=== PATIENT | female | born 1955 | race Hispanic/Latino ===

== ENCOUNTER 2016-11-25 00:27 | Observation (INO) | payer OTHER ==
[~2016-11-25] VITALS: Ht 165.1 cm; Wt 54.4 kg
[~2016-11-25 00:27] MED LIST: TAMOXIFEN CITRA20 MG PO
--- NOTE | 2016-11-25 01:08 | ED GI/GU/ABDOMINAL COMPLAINT ---
See Addendum History of Present Illness General Chief Complaint: Abdominal Pain/Flank Pain Stated Complaint: "PER PT ABD PAIN, BLOATING" Source: patient, Exam Limitations: no limitations Vital Signs & Intake/Output Vital Signs & Intake/Output Vital Signs Date Time Temp Pulse Resp B/P B/P Pulse O2 O2 Flow FiO2 Mean Ox Delivery Rate 11/25 0338 97.8 74 17 144/79 98 Room Air 11/25 0048 Room Air 11/25 0035 97.5 90 16 159/83 97 Room Air Allergies Coded Allergies: NO KNOWN ALLERGIES (01/25/14) NKA PER ANTIBIOTIC ORDER SHEET OF 01/30/13 ([facility]) Reconcile Medications No Known Home Medications Triage Note: 61YO FEMALE TO TRIAGE W/CO ABD BLOATING SINCE SUNDAY. DENIES ANY N,V,D. STATES BLOATING AFTER EATING ANYTHING. ALSO STATES HER BM'S HAVE BEEN DIFFICULT. Triage Nurses Notes Reviewed? yes ? n Is pt currently ? No HPI: patient presents for evaluation of diffuse abdominal pain and bloating feeling and has been present for over 2 weeks. Patient states the episodes have been intermittent but have gotten worse. She states she usually has the symptoms about 3-4 hours after eating. No associated fever or cold symptoms. A number of years ago for primary care doctor told her that she has small gallstones. Nothing seems to make her feel better regarding these episodes. Past History Travel History Traveled to [place] past 21 day No Medical History Any Pertinent Medical History? see below for history Surgical History Surgical History: non-contributory Psychosocial History What is your primary language Mandarin Tobacco Use: Never used Family History Hx Contributory? No Review of Systems Review of Systems Constitutional: Reports: no symptoms. EENTM: Reports: no symptoms. Respiratory: Reports: no symptoms. Cardiovascular: Reports: no symptoms. GI: Reports: see HPI. Genitourinary: Reports: no symptoms. Musculoskeletal: Reports: no symptoms. Skin: Reports: no symptoms. Neurological/Psychological: Reports: no symptoms. Hematologic/Endocrine: Reports: no symptoms. Immunologic/Allergic: Reports: no symptoms. All Other Systems: Reviewed and Negative Physical Exam Physical Exam Gastrointestinal: see below Comments: Gen.: Well-nourished, well-developed, no acute respiratory distress. Head: Normocephalic, atraumatic. Eyes: Normal inspection bilaterally, no icterus Ears: Normal inspection bilaterally Nose: Normal inspection Throat/mouth : Moist mucosa Neck: Supple, full range of motion, no goiter Heart: Regular rate and rhythm, no murmurs rubs or gallops Lungs: Clear to auscultation bilaterally with normal air entry Chest: Nontender Back: Normal range of motion Abdomen: Soft, mild right upper quadrant abdominal tenderness without rebound or guarding, nondistended, normal bowel sounds Extremities: Normal range of motion grossly, equal radial pulses, no cyanosis clubbing or edema Neurologic: Cranial nerves grossly intact, speech is clear Skin: warm and dry Psychiatric: Calm, cooperative, no apparent delusions or hallucinations Core Measures ACS in differential dx? No Severe Sepsis Present: No Septic Shock Present: No Progress Differential Diagnosis: biliary colic, cholecystitis Plan of Care: Orders Procedure Date/time Status Nothing by Mouth 11/25 B Active EKG 11/25 043 Active Vital Signs 11/25 042 Active Intake & Output 11/[address] in observation 11/25 041 Active Patient Data 11/25 417 Active URINALYSIS 11/25 010 Complete LIPASE 11/25 010 Complete COMPREHENSIVE METABOLIC PANEL 11/25 010 Complete CBC WITHOUT DIFFERENTIAL 11/25 010 Complete Current Medications Sig/Julito Start time Last Medication Dose Stop Time Status Admin Heparin Sodium 5,000 UNIT Q8 11/25 1400 UNVr (Porcine) Ampicillin Sodium/ 3,000 MG Q6H 11/25 0900 UNVr Sulbactam Sodium (Unasyn) Sodium Chloride 100 ML (Normal Saline 0.9%) Acetaminophen 1,000 MG Q6P PRN 11/25 0800 UNVr (Ofirmev) N/A 1 UNIT (No Carrier) Morphine Sulfate 2 MG Q3P PRN 11/25 0430 UNVr (Morphine) Ondansetron HCl 4 MG Q6P PRN 11/25 0430 UNVr (Zofran) Potassium Chloride 20 MEQ Q10H 11/25 0430 UNVr 11/25 (KCl 20MEQ in D5W 439 2NS 1000ML) Dextrose/Sodium 1,000 ML Chloride (D5W-1/2 Normal Saline 1000ML) Laboratory Tests 11/25/16 0215: Urinalysis LIGHT H, Urine Color YEL, Urine Clarity HAZY H, Urine pH 6.0, Ur Specific [place] 1.020, Urine Protein NEG, Urine Ketones NEG, Urine Nitrite NEG, Urine Bilirubin NEG, Urine Urobilinogen 0.2, Ur Leukocyte Esterase NEG, Ur Microscopic SEDIMENT EXAMINED, Urine RBC 3-5, Urine WBC 5-10 H, Ur Epithelial Cells FEW, Urine Bacteria RARE H, Urine Mucus FEW, Urine Hemoglobin TRACE- INTACT, Urine Glucose NEG 11/25/16 0110: Anion Gap 10, Estimated GFR > 60, BUN/Creatinine Ratio 30.0 H, Glucose 109 H, Calcium 8.9, Total Bilirubin 0.3, AST 17, ALT 30, Alkaline Phosphatase 99, Total Protein 6.4, Albumin 3.9, Globulin 2.5, Albumin/Globulin Ratio 1.6, Lipase 83, CBC w Diff NO MAN DIFF REQ, RBC 4.58, MCV 84.2, MCH 27.3, RDW 13.6, MPV 6.9 L, Gran % 64.1, Lymphocytes % 26.4, Monocytes % 7.0, Eosinophils % 2.0, Basophils % 0.5, Absolute Granulocytes 5.6, Absolute Lymphocytes 2.3, Absolute Monocytes 0.6 , Absolute Eosinophils 0.2, Absolute Basophils 0, PUBS MCHC 32.5 L Diagnostic Imaging: Discussed w/RAD: CT Scan. Radiology Impression: PATIENT: COLBY BUSH PRESENT AGE: 61 PATIENT ACCOUNT NO: [id number] : 56 LOCATION: [facility] ORDERING PHYSICIAN: LIZETH REED MD SERVICE DATE: 11/25/16 EXAM TYPE: CAT - CT ABD & PELVIS W IV CONTRAST EXAMINATION: CT ABDOMEN AND PELVIS WITH CONTRAST CLINICAL INFORMATION: Right upper quadrant abdominal pain after eating. History of gallstones. COMPARISON: CT scan of the abdomen and pelvis 01/25/2014. TECHNIQUE: Multidetector volumetric imaging was performed of the abdomen and pelvis before and after the IV administration of 75 mL of Omnipaque 300 intravenous contrast. Sagittal and coronal reformatted images were obtained on the technologist's workstation. DLP: 230.19 mGy-cm FINDINGS: LUNG BASES: Lung bases are clear. There is no pleural or precarinal effusion. LIVER, GALLBLADDER, AND BILIARY TREE: There are a few small well demarcated low-density lesions presently representing cysts along the posterior aspect of the right lobe of the liver. Liver attenuation is otherwise homogeneous. Numerous calculi are visualized within the lumen of the gallbladder. There is an impacted stone within the gallbladder neck. The gallbladder fundus is distended with a diameter of 4 cm. There is circumferential gallbladder wall thickening and mild inflammatory changes within the adjacent pericholecystic fat. PANCREAS: Unremarkable. SPLEEN: Unremarkable. ADRENAL GLANDS: Unremarkable. KIDNEYS AND URETERS: Kidneys demonstrate symmetric nephrographic enhancement. There is no discrete renal parenchymal mass. No abnormal perinephric inflation or collection. No hydroureteronephrosis. No worrisome soft tissue mass or calcification along the expected course of the right or left ureter. BLADDER: Unremarkable. GASTROINTESTINAL TRACT: The stomach is unremarkable. Small bowel is normal. A few diverticula are visualized within the sigmoid colon. The appendix is normal. No abnormal perirectal or presacral inflammation. No free intraperitoneal air or fluid. ABDOMINAL WALL: No significant hernia is appreciated. LYMPH NODES: No pathologically enlarged mesenteric or retroperitoneal lymph nodes. VASCULAR: Scattered atherosclerotic calcifications involve the abdominal aorta and iliac vessels. The inferior vena cava is unremarkable. PELVIC VISCERA: There is a retroverted uterus. No worrisome adnexal mass. OSSEOUS STRUCTURES: There is grade 2 anterolisthesis of L5 on S1 that appears be related to bilateral L5 pars interarticularis defects. Otherwise no acute osseous finding. No worrisome lytic or blastic osseous lesions. IMPRESSION: There are numerous calculi within the gallbladder lumen, one of which appears to be impacted within the gallbladder neck. The gallbladder fundus is distended with a fundal diameter of 4 cm and there is circumferential gallbladder wall thickening and subtle inflammatory stranding within the pericholecystic fat. Findings are consistent with acute cholecystitis. A right upper quadrant ultrasound may however provide better anatomic characterization of this finding. There is grade 2 anterolisthesis of L5 on S1 that appears be related to bilateral L5 pars interarticularis defects. DICTATED BY: LAVERNE CARR MD DATE/TIME DICTATED:11/25/16228 CULL GRADER:BONNIE DATE/ TIME TRANSCRIBED:11/25/16228 CONFIDENTIAL, DO NOT COPY WITHOUT APPROPRIATE AUTHORIZATION. <Electronically signed in Other Vendor System> SIGNED BY: LAVERNE CARR MD 11/25/16238 Initial ED EKG: none Comments: 11/25/2016 4:43:40 AM Colby has been evaluated by the surgical PA and has been treated with IV Unasyn for the cholecystitis. Departure Departure Disposition: STILL A PATIENT Condition: Stable Clinical Impression Primary Impression: Acute cholecystitis Referrals: PATIENT HAS NO PRIMARY CARE DR (PCP/Family) Departure Forms: Customer Survey General Discharge Information Prescriptions: Current Visit Scripts No Known Home Medications Admission Note Documentation of Exam: Documentation of any treatments & extenuating circumstances including Concerns Regarding Discharge (functional status, medication knowledge or non-compliance, living conditions, etc.) that warrant an admission rather than observation: Observation Note Spoke With: DAJA BALLESTEROS MD Physician Advisor Notified: CELIA ROSARIO,MARTHA Jara Place Patient In: Non-ED OBS Care Area Rationale for Observation: My rational for observation is as follows Patient has acute cholecystitis and will require treatment with IV antibiotics and surgical resection of the gallbladder. Her cholecystitis places her at risk of perforation, peritonitis and severe infection. I feel she now requires close clinical monitoring of physical examination and liver enzyme studies and bilirubin levels. Vital signs also be monitored for fever or hypotension. Pain should be controlled. I do not feel this patient is a good candidate for outpatient management. The pain associated with her cholecystitis would make it very difficult for the patient to comply with outpatient treatment.. Critical Care Note Critical Care Note Critical Care Time: 30-74 min
[2016-11-25 01:23] LABS: ABSOLUTE BASOPHIL COUNT 0 /CUMM (0.0-0.2); ABSOLUTE EOSINOPHIL COUNT 0.2 /CUMM (0.0-0.7); ABSOLUTE GRANULOCYTE CT 5.6 /CUMM (1.4-6.5); ABSOLUTE LYMPH COUNT 2.3 /CUMM (1.2-3.4); ABSOLUTE MONOCYTE COUNT 0.6 /CUMM (0.10-0.60); BASOPHIL % 0.5 % (0.0-2.0); GRANULOCYTE % 64.1 % (42.2-75.2); HEMATOCRIT 38.5 % (37-47); MEAN CORPUSCULAR HGB 27.3 PG (27.0-31.0); MEAN CORPUSCULAR HGB CONC 32.5 G/DL (33.0-37.0); MEAN CORPUSCULAR VOLUME 84.2 FL (81.0-99.0); MEAN PLATELET VOLUME 6.9 FL (7.4-10.4); PLATELET COUNT 319 /CUMM (130-400); RBC DISTRIBUTION WIDTH 13.6 % (11.5-14.5); RED BLOOD CELL CT 4.58 /CUMM (4.20-5.40); WHITE BLOOD CELL COUNT 8.7 /CUMM (4.8-10.8)
--- NOTE | 2016-11-25 02:39 | CT SCAN REPORT ---
EXAMINATION: CT ABDOMEN AND PELVIS WITH CONTRAST CLINICAL INFORMATION: Right upper quadrant abdominal pain after eating. History of gallstones. COMPARISON: CT scan of the abdomen and pelvis 01/25/2014. TECHNIQUE: Multidetector volumetric imaging was performed of the abdomen and pelvis before and after the IV administration of 75 mL of Omnipaque 300 intravenous contrast. Sagittal and coronal reformatted images were obtained on the technologist's workstation. DLP: 230.19 mGy-cm FINDINGS: LUNG BASES: Lung bases are clear. There is no pleural or precarinal effusion. LIVER, GALLBLADDER, AND BILIARY TREE: There are a few small well demarcated low-density lesions presently representing cysts along the posterior aspect of the right lobe of the liver. Liver attenuation is otherwise homogeneous. Numerous calculi are visualized within the lumen of the gallbladder. There is an impacted stone within the gallbladder neck. The gallbladder fundus is distended with a diameter of 4 cm. There is circumferential gallbladder wall thickening and mild inflammatory changes within the adjacent pericholecystic fat. PANCREAS: Unremarkable. SPLEEN: Unremarkable. ADRENAL GLANDS: Unremarkable. KIDNEYS AND URETERS: Kidneys demonstrate symmetric nephrographic enhancement. There is no discrete renal parenchymal mass. No abnormal perinephric inflation or collection. No hydroureteronephrosis. No worrisome soft tissue mass or calcification along the expected course of the right or left ureter. BLADDER: Unremarkable. GASTROINTESTINAL TRACT: The stomach is unremarkable. Small bowel is normal. A few diverticula are visualized within the sigmoid colon. The appendix is normal. No abnormal perirectal or presacral inflammation. No free intraperitoneal air or fluid. ABDOMINAL WALL: No significant hernia is appreciated. LYMPH NODES: No pathologically enlarged mesenteric or retroperitoneal lymph nodes. VASCULAR: Scattered atherosclerotic calcifications involve the abdominal aorta and iliac vessels. The inferior vena cava is unremarkable. PELVIC VISCERA: There is a retroverted uterus. No worrisome adnexal mass. OSSEOUS STRUCTURES: There is grade 2 anterolisthesis of L5 on S1 that appears be related to bilateral L5 pars interarticularis defects. Otherwise no acute osseous finding. No worrisome lytic or blastic osseous lesions. IMPRESSION: There are numerous calculi within the gallbladder lumen, one of which appears to be impacted within the gallbladder neck. The gallbladder fundus is distended with a fundal diameter of 4 cm and there is circumferential gallbladder wall thickening and subtle inflammatory stranding within the pericholecystic fat. Findings are consistent with acute cholecystitis. A right upper quadrant ultrasound may however provide better anatomic characterization of this finding. There is grade 2 anterolisthesis of L5 on S1 that appears be related to bilateral L5 pars interarticularis defects.
--- NOTE | 2016-11-25 04:27 | History & Physical Pre-Op ---
DARON LEVY 11/25/16 0427: General Information and HPI MD Statement: I have seen and personally examined COLBY BUSH and documented this H&P. The patient is a 61 year old F who presented with a patient stated chief complaint of abdominal bloating and pain. Source of Information: patient, family Exam Limitations: no limitations History of Present Illness: Pt is a 61 yo F with a hx of R sided breast CA (s/p lumpectomy/XRT) who presented to the ED with c/o a one week hx of progressively worsening abdominal bloating and discomfort after meals. Pain is 6 out of 10 at this time. Pt states that she has been experiencing intermittent similar symptoms for about the past month, but worse this week and last night the pain did not resolve on its own. She was treated for UTI and previously attributed her symptoms to that illness. She has a known hx of asymptomatic cholelithiasis several years ago and was referred to Dr. Wolfe, who recommended observation. No significant nausea, vomiting, or diarrhea. She also denies CASTILLO, dizziness, CP, shortness of breath, palpitations, dysuria. Workup in the ED revealed CT evidence of acute cholecystitis. Allergies/Medications Allergies: Coded Allergies: NO KNOWN ALLERGIES (01/25/14) NKA PER ANTIBIOTIC ORDER SHEET OF 01/30/13 ([facility]) Home Med list No Known Home Medications Past History Medical History Cancer(s): breast cancer Surgical History Pertinent Surgical History: lumpectomy Past Family/Social History Psychosocial History Smoking Status: Never Smoked ETOH Use: occasional use Functional Ability ADLs Independent: dressing, eating, toileting, bathing. Ambulation: independent IADLs Independent: shopping, housework, finances, food prep, telephone, transportation , medication admin. Employment History Employment: Employed Profession/Employer: temporary staff accountant Review of Systems Review of Systems: Positive for abdominal pain and bloating. Negative for headache, dizziness, chest pain, shortness of breath, cough, palpitations, nausea, vomiting, diarrhea, constipation, dysuria. Exam & Diagnostic Data Last 24 Hrs of Vital Signs/I&O Vital Signs Date Time Temp Pulse Resp B/P B/P Pulse O2 O2 Flow FiO2 Mean Ox Delivery Rate 11/25 0338 97.8 74 17 144/79 98 Room Air 11/25 0048 Room Air 11/25 0035 97.5 90 16 159/83 97 Room Air Intake & Output 11/25 0800 07 0000 11/24 1600 Intake Total 0 Output Total Balance 0 Intake, Oral 0 Patient 120 lb Weight Physical Exam: General: Patient is awake and alert. No acute distress. Cardiac: Regular. No murmurs appreciated. Pulmonary: Lungs are clear to auscultation bilaterally. No wheezes, rales, rhonchi or appreciated. Abdomen: Soft and mild to moderate distention. There is tenderness in the epigastric area and right upper quadrant. No Malone sign. Normoactive bowel sounds were heard. No surgical abdominal scars are appreciated. Extremities: No significant edema or calf tenderness appreciated. Last 24 Hrs of Labs/Emmanuel: Laboratory Tests 11/25/16 0215: Urinalysis LIGHT H, Urine Color YEL, Urine Clarity HAZY H, Urine pH 6.0, Ur Specific [place] 1.020, Urine Protein NEG, Urine Ketones NEG, Urine Nitrite NEG, Urine Bilirubin NEG, Urine Urobilinogen 0.2, Ur Leukocyte Esterase NEG, Ur Microscopic SEDIMENT EXAMINED, Urine RBC 3-5, Urine WBC 5-10 H, Ur Epithelial Cells FEW, Urine Bacteria RARE H, Urine Mucus FEW, Urine Hemoglobin TRACE- INTACT, Urine Glucose NEG 11/25/16 0110: Anion Gap 10, Estimated GFR > 60, BUN/Creatinine Ratio 30.0 H, Glucose 109 H, Calcium 8.9, Total Bilirubin 0.3, AST 17, ALT 30, Alkaline Phosphatase 99, Total Protein 6.4, Albumin 3.9, Globulin 2.5, Albumin/Globulin Ratio 1.6, Lipase 83, CBC w Diff NO MAN DIFF REQ, RBC 4.58, MCV 84.2, MCH 27.3, RDW 13.6, MPV 6.9 L, Gran % 64.1, Lymphocytes % 26.4, Monocytes % 7.0, Eosinophils % 2.0, Basophils % 0.5, Absolute Granulocytes 5.6, Absolute Lymphocytes 2.3, Absolute Monocytes 0.6 , Absolute Eosinophils 0.2, Absolute Basophils 0, PUBS MCHC 32.5 L Diagnostic Data Other Results CT scan of abdomen and pelvis revealed: There are numerous calculi within the gallbladder lumen, one of which appears to be impacted within the gallbladder neck. The gallbladder fundus is distended with a fundal diameter of 4 cm and there is circumferential gallbladder wall thickening and subtle inflammatory stranding within the pericholecystic fat. Findings are consistent with acute cholecystitis. A right upper quadrant ultrasound may however provide better anatomic characterization of this finding. There is grade 2 anterolisthesis of L5 on S1 that appears be related to bilateral L5 pars interarticularis defects. Assessment/Plan Assessment/Plan: Patient is a 61-year-old female with a remote history of right-sided breast cancer, but otherwise healthy, who now has acute cholecystitis. Plan: -Patient can be placed in 23 hour observation. -She will require urgent laparoscopic cholecystectomy when the OR is available. -Nothing by mouth. IV fluids. -Unasyn every 6 hours until OR. -Zofran can be used for nausea as needed. -Tylenol or morphine can be used for pain as needed. -Alps for DVT prophylaxis. If patient remains in-house, then subcutaneous heparin can be started. -Anticipate discharge postoperatively later today. -This was discussed with the patient and her , and also with Bayron Cruz MD, and all are in agreement. As Ranked By This Provider Problem List: 1. Acute cholecystitis FAVIAN ROSARIO,BAYRON 11/25/16 1047: General Information and HPI MD Statement: I have seen and personally examined COLBY BUSH and documented this H&P. The patient is a 61 year old F who presented with a patient stated chief complaint of [abdominal pain]. Patient was seen and examined by myself this morning I agree with the above history physical and review of systems. She has had known gallstones for a long time was not symptomatic she is now had several attacks over the last several weeks including bloating and right upper quadrant pain but no nausea vomiting or diarrhea given the findings on the CAT scan and the patient still this morning has some mild discomfort it is menendez to perform a laparoscopic cholecystectomy. I discussed this with the patient detail, we have discussed laparoscopic, cholecystectomy and possible open risks versus benefits and possible complications of surgery including but not limited to bleeding infection injury to bile ducts or bowel. The patient consents to laparoscopic cholecystectomy and were waiting over time.
--- NOTE | 2016-11-25 04:28 | Admission Core Measures ---
Admission Lab Results I reviewed the following labs: Laboratory Tests 11/25 11/25 0215 0110 Chemistry Sodium (137 - 145 mmol/L) 140 Potassium (3.5 - 5.1 mmol/L) 3.4 L Chloride (98 - 107 mmol/L) 105 Carbon Dioxide (22 - 30 mmol/L) 26 Anion Gap (5 - 16) 10 BUN (7 - 17 mg/dL) 21 H Creatinine (0.5 - 1.0 mg/dL) 0.7 Estimated GFR (>60 ml/min) > 60 BUN/Creatinine Ratio (7 - 25 %) 30.0 H Glucose (65 - 99 mg/dL) 109 H Calcium (8.4 - 10.2 mg/dL) 8.9 Total Bilirubin (0.2 - 1.3 mg/dL) 0.3 AST (14 - 36 U/L) 17 ALT (9 - 52 U/L) 30 Alkaline Phosphatase (<127 U/L) 99 Total Protein (6.3 - 8.2 g/dL) 6.4 Albumin (3.5 - 5.0 g/dL) 3.9 Globulin (1.9 - 4.2 gm/dL) 2.5 Albumin/Globulin Ratio (1.1 - 2.2 %) 1.6 Lipase (23 - 300 U/L) 83 Hematology CBC w Diff NO MAN DIFF REQ WBC (4.8 - 10.8 /CUMM) 8.7 RBC (4.20 - 5.40 /CUMM) 4.58 Hgb (12.0 - 16.0 G/DL) 12.5 Hct (37 - 47 %) 38.5 MCV (81.0 - 99.0 FL) 84.2 MCH (27.0 - 31.0 PG) 27.3 RDW (11.5 - 14.5 %) 13.6 Plt Count (130 - 400 /CUMM) 319 MPV (7.4 - 10.4 FL) 6.9 L Gran % (42.2 - 75.2 %) 64.1 Lymphocytes % (20.5 - 51.1 %) 26.4 Monocytes % (1.7 - 9.3 %) 7.0 Eosinophils % (0 - 5 %) 2.0 Basophils % (0.0 - 2.0 %) 0.5 Absolute Granulocytes (1.4 - 6.5 /CUMM) 5.6 Absolute Lymphocytes (1.2 - 3.4 /CUMM) 2.3 Absolute Monocytes (0.10 - 0.60 /CUMM) 0.6 Absolute Eosinophils (0.0 - 0.7 /CUMM) 0.2 Absolute Basophils (0.0 - 0.2 /CUMM) 0 PUBS MCHC (33.0 - 37.0 G/DL) 32.5 L Urines Urinalysis LIGHT H Urine Color (YEL,AMB,STR) YEL Urine Clarity (CLEAR) HAZY H Urine pH (5.0 - 8.0) 6.0 Ur Specific [place] (1.001 - 1.035) 1.020 Urine Protein (NEG,<30 MG/DL) NEG Urine Ketones (NEG) NEG Urine Nitrite (NEG) NEG Urine Bilirubin (NEG) NEG Urine Urobilinogen (0.1 - 1.0 EU/dl) 0.2 Ur Leukocyte Esterase (NEG) NEG Ur Microscopic SEDIMENT EXAMINED Urine RBC (0 - 5 /HPF) 3-5 Urine WBC (0 - 2 /HPF) 5-10 H Ur Epithelial Cells (NONE,FEW) FEW Urine Bacteria (NEG/NONE) RARE H Urine Mucus (FEW,NONE) FEW Urine Hemoglobin (NEG) TRACE-INTACT Urine Glucose (N MG/DL) NEG Admission Meds I reviewed the following Meds: Current Medications Sig/Julito Start time Last Medication Dose Stop Time Status Admin Acetaminophen 1,000 MG Q6P PRN 07 0800 UNVr (Ofirmev) N/A 1 UNIT (No Carrier) Ampicillin Sodium/ 3,000 MG Q6H 11/25 0900 UNVr Sulbactam Sodium (Unasyn) Sodium Chloride 100 ML (Normal Saline 0.9%) Heparin Sodium 5,000 UNIT Q8 11/25 1400 UNVr (Porcine) Morphine Sulfate 2 MG Q3P PRN 11/25 0430 UNVr (Morphine) Ondansetron HCl 4 MG Q6P PRN 11/25 0430 UNVr (Zofran) Potassium Chloride 20 MEQ Q10H 11/25 0430 UNVr (KCl 20MEQ in D5W 1/ 2NS 1000ML) Dextrose/Sodium 1,000 ML Chloride (D5W-1/2 Normal Saline 1000ML) Acute Coronary Syndrome Inclusion Criteria ACS Diagnosis No Inpatient Core Measures LDL Reminder: If No, please order W/I first 24hr of stay Congestive Heart Failure Inclusion Criteria CHF Diagnosis No Cerebrovascular accident Inclusion Criteria CVA/TIA Diagnosis No Inpatient Core Measures Bedside Swallow Eval Reminder: If BSE failed, place ST order Antithrombotic Reminder: Order Antithrombotic Medication by end of day 2 Antithrombotic Reminder: Document Reason Antithrombotic Not ordered by end of day 2 AFIB/Flutter Reminder: If Present, add to problem list AFIB/Flutter Reminder: Order Anticoag Medication for pts with AFIB/Flutter Atherosclerosis Reminder: If Present, add to problem list LDL Reminder: If No, please order W/I first 24hr of stay PT Order Reminder: If No, please order Venous thromboembolism Inpatient Core Measures VTE Risk Factors: Acute medical illness, Age > 40, [facility]/t No contraindications No VTE Pharm Prophylaxis d/t No contraindications Inclusion Criteria - Per Current guidelines, there needs to be overlap - treatment for the first 5 days of Warfarin therapy. - Parenteral Anticoagulation (IV or SC) needs to be - given along with Warfarin therapy. VTE Diagnosis No VTE Type NONE VTE Confirmed by (Test) NONE Problem List As ranked by this Provider includes Assessment & Plan 1. Acute cholecystitis HOME MEDS Home Med List No Known Home Medications
[2016-11-25 06:58] VITALS: BP 141/93
--- NOTE | 2016-11-25 13:44 | Operative Report ---
Operative/Inv Procedure Report Surgery Date: 11/25/16 Name of Procedure: Laparoscopic cholecystectomy Pre-Operative Diagnosis: Acute cholecystitis cholelithiasis Post-Operative Diagnosis: Same Estimated Blood Loss: less than 50ml Surgeon/[employer] Law Clerk: FAVIAN ROSARIO,DAJA Rankin PA-C Anesthesia: general endotracheal tube, block IV Fluids: Lactated Ringer's Urine Output: Not measured Drains: None Specimens: Gallbladder and stones Complications: None Condition: Stable Operative Indication: Please see admitting H&P Operative/Procedure Note Note: After informed consent and proper identification the patient was taken to the operating room and placed on the operating table supine position. A timeout was performed. Anesthesia intubated the patient without difficulty. Anesthesia performed a Tavo block. The abdomen was then prepped and draped in normal sterile fashion we made an infraumbilical incision with #11 blade after incising the skin and elevated the fascia between 2-0 Vicryl suture and opened the fascia with #15 blade under direct visualization a 10 mm blunt port cannula was inserted using a 0 laparoscope under direct visualization we inserted 3 additional 5 mm trochars one in the upper midline and 2 along the right subcostal margin the gallbladder was tense distended and pale looking we made an opening in the gallbladder with a hook cautery and then with a suction merchandise worker sucked out green thin bile were multiple stones within the gallbladder. We pushed the fundus over the liver edge we dissected out in the edematous fatty infundibulum but easily dissected out the cystic duct and cystic artery in place clips proximally and distally on the cystic duct and cystic artery we dissected the gallbladder out of the liver bed without difficulty with very little intrusion into the liver bed. We cauterized and then placed a piece of Surgicel in the liver bed. We suction irrigated the right upper quadrant there is no active bleeding remove the gallbladder in a 10 Endo Catch bag through the infraumbilical incision which we had to make a little wider as there was at least one stone that was approximately 3 cm and multiple other stones probably around 2 cm we closed the fascial defect with a running 0 Prolene suture we closed the skin incisions with 4-0 Monocryl subcuticular stitches Steri-Strips and dry sterile dressings were placed the patient is being extubated and taken the recovery room in stable condition Findings: Thick distended gallbladder with early signs of necrosis and very large multiple stones greater than 2 cm Discharge Disposition: PACU
--- NOTE | 2016-11-25 14:46 | Patient Discharge Instructions ---
Discharge Instructions General Discharge Information You were seen/treated for: acute cholecystitis You had these procedures: lap kirk Watch for these problems: temp>101.5, increased wound drainage/redness, increased pain No bath, but you may shower: Yes Other wound care: keep wound clear and dry Diet Continue normal diet: Yes Activity Activity Limited to: Weight bear as tolerated Other activity limits: no strenuous activity Acute Coronary Syndrome Inclusion Criteria At DC or during hospital stay patient has or had the following: ACS DIAGNOSIS No Discharge Core Measures Meds if any: Prescribed or Continued at Discharge Meds if any: NOT Prescribed or Continued at Discharge Congestive Heart Failure Inclusion Criteria At DC or during hospital stay patient has or had the following: CHF DIAGNOSIS No Discharge Core Measures Meds if any: Prescribed or Continued at Discharge Meds if any: NOT Prescribed or Continued at Discharge Cerebrovascular accident Inclusion Criteria At DC or during hospital stay patient has or had the following: CVA/TIA Diagnosis No Discharge Core Measures Meds if any: Prescribed or Continued at Discharge Meds if any: NOT Prescribed or Continued at Discharge Venous thromboembolism Inclusion Criteria VTE Diagnosis No VTE Type NONE VTE Confirmed by (Test) NONE Discharge Core Measures - Per Current guidelines, there needs to be overlap - treatment for the first 5 days of Warfarin therapy. - If discharged on Warfarin prior to 5 days of - overlap therapy, the patient will need to be - assessed for post discharge needs including - *Post discharge parental anticoagulation - *Warfarin and/or parental anticoagulation education - *Follow up date to check INR post discharge At least 5 days overlap therapy as Inpatient No Meds if any: Prescribed or Continued at Discharge Note: Overlap Therapy is Warfarin and Anticoagulant Meds if any: NOT Prescribed or Continued at Discharge
[2016-11-25] MEDS ORDERED: PERCOCET 5-3251 EACH PO ×2 (17:13→17:24)
== END 2016-11-25 19:20 ==
LOC: ERH 00:27 → ERHI 04:19 → ENRESERV 04:34 → 2NB 05:06
PROVIDERS: Emergency Medicine; ADMIT Surgery
DX: K80.12 Calculus of gallbladder with acute and chronic cholecystitis without obstruction (principal); Z85.3 Personal history of malignant neoplasm of breast
CPT/HCPCS: 6040; 74177; 81001; 88304; 93005; 93010; 96374; 96375; C9399; G0378; J0131; J1100; J1644; J1885; J2405; J7042